=== PATIENT | male | born 2000 | race African-American/Black ===

== ENCOUNTER 2022-12-28 01:56 | Emergency (ER) | payer SELFPAY ==
[~2022-12-28] VITALS: Ht 177.8 cm; Wt 101.0 kg
[2022-12-28 02:42] VITALS: BP 118/75; PULSE 110; RESP 16; TEMP 98.4; O2SAT 100
== END 2022-12-28 04:45 | disposition left against medical advice (07) ==
LOC: ER 01:56
DX: Z53.21 Procedure and treatment not carried out due to patient leaving prior to being seen by health care provider (principal)
CPT/HCPCS: 99281